=== PATIENT | male | born 1960 | race Caucasian/White ===

== ENCOUNTER 2017-06-25 15:31 | Inpatient (IN) | payer MEDICAID ==
[~2017-06-25] VITALS: Ht 170.2 cm; Wt 90.7 kg
[~2017-06-25 15:31] MED LIST: IOHEXOL-350 100 ML BOTTLE ONE; SODIUM CHLORIDE 0.9% 10ML VIAL ONE
[2017-06-25] MEDS ORDERED: CLOT15CR2 TP (15:50)
[2017-06-25] MEDS ORDERED: FAMO20TA8 PO (15:50)
[2017-06-25] MEDS ORDERED: ATOR10TA69 PO (15:50)
[2017-06-25] MEDS ORDERED: LOSA50TA20 PO (15:50)
[2017-06-25] MEDS ORDERED: GABA-529 PO (15:50)
[2017-06-25] MEDS ORDERED: ASPI-1159 PO (15:50)
[2017-06-25] MEDS ORDERED: INSU100I28 SQ (15:50)
[2017-06-25] MEDS ORDERED: INSLIS SUBCUT (15:50)
[2017-06-25] MEDS ORDERED: METO25TA6 PO (15:50)
[2017-06-25] MEDS ORDERED: SPIR25TA4 PO (15:50)
[2017-06-25] MEDS ORDERED: ASPIRIN 81MG TABLET PO STA (16:32)
[2017-06-25] MEDS ORDERED: LEVOFLOXACIN 750MG PREMIX 150 ML IV ONE (16:45)
[2017-06-25] MEDS ORDERED: SODIUM CHLORIDE 0.9% 1000ML BAG (SEPSIS BOLUS) IV ONE (16:45)
[2017-06-25] MEDS: NITROGLYCERIN 0.4MG TABLET SL SL PRN ×2 (16:47→17:02)
[2017-06-25 17:01] LABS: BASOPHILS % 0.6 % (0.0-2.0); EOSINOPHILS % 1.5 % (0.0-5.0); HEMATOCRIT. 41.4 % (42.0-52.0); HEMOGLOBIN. 13.7 g/dL (14.0-18.0); LYMPHOCYTES % 21.3 % (20.0-50.0); MEAN CORPUSCULAR HEMOGLOBIN 28.4 pg (28.0-32.0); MEAN CORPUSCULAR VOLUME 85.5 fL (80.0-94.0); MEAN PLATELET VOLUME 8.1 fl (7.4-10.4); MONOCYTES % 11.3 % (2.0-8.0); NEUTROPHILS % 65.3 % (40.0-76.0); PLATELET 221 x1000/uL (130-400); RED BLOOD CELL COUNT 4.84 mill/uL (4.7-6.1); RED CELL DISTRIBUTION WIDTH 15.2 % (11.6-14.6)
[2017-06-25 17:13] LABS: D-DIMER 1.37 mg/L FEU (<0.50); PROTHROMBIN TIME 10.2 sec (9.4-11.6)
[2017-06-25 17:21] LABS: CARBON DIOXIDE 25 mEq/L (21-32); CHLORIDE 108 mEq/L (98-107); TROPONIN I < 0.02 ng/mL (0.00-0.04)
[2017-06-25 17:39] LABS: CLARITY URINE CLEAR (CLEAR); COLOR URINE YELLOW (YELLOW); GLUCOSE URINE TRACE (NEGATIVE); KETONES URINE NEGATIVE (NEGATIVE); LEUKOCYTE ESTERASE URINE NEGATIVE (NEGATIVE); NITRITE URINE NEGATIVE (NEGATIVE); OCCULT BLOOD URINE NEGATIVE (NEGATIVE); PH URINE 5.5 (4.5-8.0); PROTEIN URINE TRACE (NEGATIVE); SPECIFIC GRAVITY URINE 1.019 (1.005-1.030); UROBILINOGEN URINE 0.2 E.U./dL (0.2-1.0)
[2017-06-25] MEDS ORDERED: FUROSEMIDE 40MG/4ML VIAL IVP ONE (20:00)
[2017-06-25] MEDS ORDERED: AMMO240L2 TP (20:01)
[2017-06-25] MEDS ORDERED: NEO/5DRO7 OP (20:02)
[2017-06-25] MEDS ORDERED: ONDANSETRON HCL 4MG/2ML VIAL IV PRN (20:15)
[2017-06-25] MEDS ORDERED: CLONIDINE 0.1MG TABLET PO PRN (20:15)
[2017-06-25] MEDS ORDERED: ACETAMINOPHEN 325MG TABLET PO PRN (20:15)
[2017-06-25] MEDS ORDERED: MAGNESIUM/ALUMINUM HYDROXIDE/SIMETHICONE 30ML UDC PO PRN (20:15)
[2017-06-25] MEDS ORDERED: IPRATROPIUM/ALBUTEROL 0.5-3(2.5)MG/3ML NEB INH PRN (20:15)
[2017-06-25] MEDS ORDERED: HYDROCODONE/ACETAMINOPHEN 5/325MG TABLET PO PRN (20:15)
[2017-06-25 22:00] VITALS: BP 109/64
[2017-06-25] MEDS: BLOOD SUGAR DIAGNOSTIC STRIP TEST SCH (22:00)
[2017-06-25] MEDS ORDERED: DEXTROSE 50% WATER 50ML SYRINGE IV PRN (22:00)
[2017-06-25] MEDS ORDERED: CEFTRIAXONE 1 G PREMIX 50 ML IV SCH (22:30)
[2017-06-25] MEDS: AZITHROMYCIN 500 MG TABLET PO SCH (23:00)
[2017-06-25] MEDS: ENOXAPARIN 30MG/0.3ML SYR SUBCUT SCH (23:02)
[2017-06-25] MEDS: INSULIN LISPRO 100 UNITS/ML SUBCUT SCH (23:03)
[2017-06-25] MEDS: GABAPENTIN 400MG CAPSULE PO SCH (23:28)
[2017-06-26] VITALS: BP 115/60
[2017-06-26] MEDS ORDERED: INFLUENZA VIRUS VACCINE 0.5ML SYR IM ONE (01:00)
[2017-06-26 01:36] LABS: CARBON DIOXIDE 25 mEq/L (21-32); CHLORIDE 104 mEq/L (98-107); CREATINE KINASE 261 IU/L (39-308); CREATINE KINASE MB FRACTION 1.6 ng/mL (0.5-3.6); TROPONIN I < 0.02 ng/mL (0.00-0.04)
[2017-06-26 04:00] VITALS: BP 123/78
[2017-06-26] MEDS: GABAPENTIN 400MG CAPSULE PO SCH ×3 (05:37→21:25)
[2017-06-26 06:28] LABS: BASOPHILS % 0.4 % (0.0-2.0); EOSINOPHILS % 0.8 % (0.0-5.0); HEMATOCRIT. 40.2 % (42.0-52.0); HEMOGLOBIN. 13.3 g/dL (14.0-18.0); MEAN CORPUSCULAR HEMOGLOBIN 28.2 pg (28.0-32.0); MEAN CORPUSCULAR VOLUME 85.4 fL (80.0-94.0); MEAN PLATELET VOLUME 8.1 fl (7.4-10.4); MONOCYTES % 11.5 % (2.0-8.0); NEUTROPHILS % 61.3 % (40.0-76.0); PLATELET 197 x1000/uL (130-400)
[2017-06-26] MEDS: BLOOD SUGAR DIAGNOSTIC STRIP TEST SCH ×4 (06:45→21:23)
[2017-06-26 07:35] LABS: CREATINE KINASE 238 IU/L (39-308); CREATINE KINASE MB FRACTION 1.5 ng/mL (0.5-3.6); HDL CHOLESTEROL 19 mg/dL (40-59); LDL CHOLESTEROL 75 mg/dL (5-100); TROPONIN I < 0.02 ng/mL (0.00-0.04)
[2017-06-26 08:00] VITALS: BP 102/57
[2017-06-26] MEDS: INSULIN LISPRO 100 UNITS/ML SUBCUT SCH ×4 (08:10→21:32)
[2017-06-26] MEDS: METOPROLOL TARTRATE 25MG TABLET PO SCH ×2 (08:46→21:00)
[2017-06-26] MEDS: SPIRONOLACTONE 25MG TABLET PO SCH (08:48)
[2017-06-26] MEDS ORDERED: FAMOTIDINE(NEO) 1MG/ML SUSP PO SCH (09:00)
[2017-06-26] MEDS ORDERED: SPIRONOLACTONE 5MG/ML 1ML ORAL SYR(NEO) PO SCH (09:00)
[2017-06-26] MEDS: LOSARTAN POTASSIUM 50 MG TABLET PO SCH (09:13)
[2017-06-26] MEDS: AZITHROMYCIN 500 MG TABLET PO SCH (09:13)
[2017-06-26] MEDS: ASPIRIN 81MG EC TABLET PO SCH (09:13)
[2017-06-26] MEDS: FAMOTIDINE 20MG TABLET PO SCH (09:13)
[2017-06-26] MEDS: ENOXAPARIN 30MG/0.3ML SYR SUBCUT SCH ×2 (09:14→21:27)
[2017-06-26 09:28] LABS: *AMPHETAMINES SCREEN URINE NEGATIVE (NEGATIVE); *BARBITURATES SCREEN URINE NEGATIVE (NEGATIVE); *BENZODIAZEPINES SCREEN URINE NEGATIVE (NEGATIVE); *COCAINE SCREEN URINE NEGATIVE (NEGATIVE); CANNABINOID URINE SCREEN NEGATIVE (NEGATIVE); METHADONE URINE SCREEN NEGATIVE (NEGATIVE); OPIATES URINE SCREEN NEGATIVE (NEGATIVE); PHENCYCLIDINE URINE SCREEN NEGATIVE (NEGATIVE)
[2017-06-26 12:00] VITALS: BP 94/64
[2017-06-26 16:00] VITALS: BP 114/64
[2017-06-26 20:00] VITALS: BP 97/55
[2017-06-26] MEDS ORDERED: ATORVASTATIN CALCIUM 10MG TABLET PO SCH (21:00)
[2017-06-26] MEDS ORDERED: CEFTRIAXONE 1 G PREMIX 50 ML IV SCH (23:00)
[2017-06-27] VITALS: BP 95/50
[2017-06-27 04:00] VITALS: BP 125/71
[2017-06-27] MEDS: GABAPENTIN 400MG CAPSULE PO SCH ×2 (06:00→12:57)
[2017-06-27 06:25] LABS: BASOPHILS % 0.6 % (0.0-2.0); EOSINOPHILS % 2.8 % (0.0-5.0); HEMOGLOBIN. 13.6 g/dL (14.0-18.0); LYMPHOCYTES % 46.1 % (20.0-50.0); MEAN CORPUSCULAR HEMOGLOBIN 28.5 pg (28.0-32.0); MEAN CORPUSCULAR VOLUME 85.7 fL (80.0-94.0); MEAN PLATELET VOLUME 8.3 fl (7.4-10.4); MONOCYTES % 12.2 % (2.0-8.0); NEUTROPHILS % 38.3 % (40.0-76.0); PLATELET 183 x1000/uL (130-400); RED BLOOD CELL COUNT 4.79 mill/uL (4.7-6.1)
[2017-06-27] MEDS: BLOOD SUGAR DIAGNOSTIC STRIP TEST SCH ×2 (06:46→13:10)
[2017-06-27 08:00] VITALS: BP 110/63
[2017-06-27] MEDS: INSULIN LISPRO 100 UNITS/ML SUBCUT SCH ×2 (08:10→14:11)
[2017-06-27 08:23] LABS: CARBON DIOXIDE 24 mEq/L (21-32); CHLORIDE 106 mEq/L (98-107)
[2017-06-27] MEDS: LOSARTAN POTASSIUM 50 MG TABLET PO SCH (08:36)
[2017-06-27] MEDS: FAMOTIDINE 20MG TABLET PO SCH (08:36)
[2017-06-27] MEDS: ASPIRIN 81MG EC TABLET PO SCH (08:36)
[2017-06-27] MEDS: METOPROLOL TARTRATE 25MG TABLET PO SCH (08:37)
[2017-06-27] MEDS: ENOXAPARIN 30MG/0.3ML SYR SUBCUT SCH (08:48)
[2017-06-27] MEDS: AZITHROMYCIN 500 MG TABLET PO SCH (08:55)
[2017-06-27] MEDS ORDERED: REGADENOSON 0.4 MG/5 ML IV ONE (09:24)
[2017-06-27] MEDS: SPIRONOLACTONE 25MG TABLET PO SCH (09:46)
[2017-06-27] MEDS ORDERED: REGADENOSON 0.4 MG/5 ML IV NR (11:15)
[2017-06-27 12:00] VITALS: BP 107/64
[2017-06-27 15:44] VITALS: BP 107/64
[2017-06-27 16:00] VITALS: BP 91/55
== END 2017-06-27 16:10 | disposition home or self-care (01) | DRG 194 ==
LOC: ER 16:50 → 7WST 18:29 → ENRESERV 19:49
PROVIDERS: ADMIT Internal Medicine; ATTEND Internal Medicine
DX: I11.0 Hypertensive heart disease with heart failure (principal); N17.0 Acute kidney failure with tubular necrosis; I50.33 Acute on chronic diastolic (congestive) heart failure; I24.9 Acute ischemic heart disease, unspecified; E11.51 Type 2 diabetes mellitus with diabetic peripheral angiopathy without gangrene; I42.9 Cardiomyopathy, unspecified; I50.9 Heart failure, unspecified; R07.89 Other chest pain; D64.9 Anemia, unspecified; J44.9 Chronic obstructive pulmonary disease, unspecified; E78.00 Pure hypercholesterolemia, unspecified; R79.1 Abnormal coagulation profile; E78.5 Hyperlipidemia, unspecified; F17.210 Nicotine dependence, cigarettes, uncomplicated; I25.10 Atherosclerotic heart disease of native coronary artery without angina pectoris; Z79.82 Long term (current) use of aspirin; Z79.899 Other long term (current) drug therapy; I25.2 Old myocardial infarction; Z79.4 Long term (current) use of insulin; Z95.1 Presence of aortocoronary bypass graft; Z95.828 Presence of other vascular implants and grafts
CPT/HCPCS: 36415; 71010; 71275; 78452; 80048; 80053; 80061; 80305; 81001; 82550; 82553; 82962; 83605; 83735; 83880; 84443; 84484; 85025; 85379; 85610; 85730; 87040; 87070; 87086; 90686; 93005; 93017; 93306; 93970; 96365; 96375; 99285; A4216; A9500; J0696; J1650; J1815; J1940; J1956; J2785; J7030; J7050; Q9967

== ENCOUNTER 2020-10-27 10:50 | Inpatient (IN) | payer MEDICAID, MEDICARE, OTHER ==
[~2020-10-27] VITALS: Ht 170.2 cm; Wt 70.3 kg
[~2020-10-27 10:50] MED LIST changes: +AMMO240L2 TP; +ASPI-1497 PO; +ATOR10TA69 PO; +CLOT15CR27 TP; +FAMO20TA8 PO; +GABA-529 PO; +INSLIS SUBCUT; +INSU100I28 SQ; -IOHEXOL-350 100 ML BOTTLE ONE; +LOSA50TA41 PO; +METO25TA6 PO; +NEO/5DRO7 OP; -SODIUM CHLORIDE 0.9% 10ML VIAL ONE; +SPIR25TA6 PO
[2020-10-27] MEDS ORDERED: SODIUM CHLORIDE 0.9% 1,000 ML IV ONE (11:30)
[2020-10-27 11:38] LABS: BASOPHILS % 0.4 % (0.0-2.0); EOSINOPHILS % 0.6 % (0.0-5.0); HEMOGLOBIN. 14.6 g/dL (14.0-18.0); LYMPHOCYTES % 13.8 % (20.0-50.0); MEAN CORPUSCULAR HEMOGLOBIN 29.2 pg (28.0-32.0); MEAN CORPUSCULAR VOLUME 87.7 fL (80.0-94.0); MEAN PLATELET VOLUME 8.1 fl (7.4-10.4); MONOCYTES % 5.9 % (2.0-8.0); NEUTROPHILS % 79.3 % (40.0-76.0); PLATELET 221 x1000/uL (130-400); RED BLOOD CELL COUNT 5.02 mill/uL (4.7-6.1); RED CELL DISTRIBUTION WIDTH 14.3 % (11.6-14.6)
[2020-10-27 11:44] LABS: CHLORIDE 102 mEq/L (98-107)
[2020-10-27 11:45] LABS: INR 0.9; PROTHROMBIN TIME 9.9 sec (9.6-11.0)
[2020-10-27 12:08] LABS: CLARITY URINE CLEAR (CLEAR); COLOR URINE YELLOW (YELLOW); KETONES URINE NEGATIVE (NEGATIVE); LEUKOCYTE ESTERASE URINE NEGATIVE (NEGATIVE); NITRITE URINE NEGATIVE (NEGATIVE); OCCULT BLOOD URINE NEGATIVE (NEGATIVE); PROTEIN URINE TRACE (NEGATIVE); SPECIFIC GRAVITY URINE 1.034 (1.005-1.030); UROBILINOGEN URINE 0.2 E.U./dL (0.2-1.0)
[2020-10-27] MEDS ORDERED: INSULIN REGULAR (HUMULIN R) UD 100 UNITS/ML SYR SUBCUT NR (12:15)
[2020-10-27] MEDS ORDERED: INSULIN REGULAR (HUMULIN R) 300UNITS/3ML VIAL SUBCUT NR (13:00)
[2020-10-27] MEDS ORDERED: MAGNESIUM/ALUMINUM HYDROXIDE/SIMETHICONE 30ML UDC PO PRN (18:00)
[2020-10-27] MEDS ORDERED: ONDANSETRON HCL 4MG/2ML INJ IV PRN (18:00)
[2020-10-27] MEDS ORDERED: HYDROCODONE/ACETAMINOPHEN 5/325MG TABLET PO PRN (18:00)
[2020-10-27] MEDS ORDERED: DOCUSATE SODIUM 100MG CAPSULE PO PRN (18:00)
[2020-10-27] MEDS ORDERED: ACETAMINOPHEN 325MG TABLET PO PRN (18:00)
[2020-10-27] MEDS ORDERED: DEXTROSE 50% WATER 50ML SYRINGE IV PRN ×2 (18:00)
[2020-10-27] MEDS ORDERED: IPRATROPIUM/ALBUTEROL 0.5-3(2.5)MG/3ML NEB HHN PRN (18:00)
[2020-10-27] MEDS ORDERED: CLONIDINE 0.1MG TABLET PO PRN (18:00)
[2020-10-27 18:31] VITALS: BP 118/59
[2020-10-27] MEDS ORDERED: GABAPENTIN 100MG CAPSULE PO SCH (18:45)
[2020-10-27] MEDS: ENOXAPARIN 40MG/0.4ML SYR SUBCUT SCH (18:59)
[2020-10-27] MEDS ORDERED: SODIUM POLYSTYRENE SULFONATE 15 G/60 ML BOT PO NR (19:00)
[2020-10-27 20:00] VITALS: BP 117/58
[2020-10-27] MEDS: BLOOD SUGAR DIAGNOSTIC STRIP TEST SCH (21:15)
[2020-10-27] MEDS: ATORVASTATIN CALCIUM 10MG TABLET PO SCH (21:18)
[2020-10-27] MEDS: INSULIN LISPRO 100 UNITS/ML SUBCUT SCH (21:22)
[2020-10-27] MEDS ORDERED: INSULIN GLARGINE UD 100 UNITS/ML SYR SUBCUT SCH (22:00)
[2020-10-27] MEDS: INSULIN GLARGINE UD 100 UNITS/ML SYR SUBCUT SCH (23:05)
[2020-10-28] VITALS: BP 91/55
[2020-10-28 04:00] VITALS: BP 105/53
[2020-10-28] MEDS: BLOOD SUGAR DIAGNOSTIC STRIP TEST SCH ×4 (06:44→21:05)
[2020-10-28] MEDS: OMEPRAZOLE 20MG CAPSULE EXTENDED RELEASE PO SCH (06:44)
[2020-10-28 08:00] VITALS: BP 106/60
[2020-10-28 08:01] LABS: BASOPHILS % 0.9 % (0.0-2.0); EOSINOPHILS % 1.7 % (0.0-5.0); HEMATOCRIT. 42.1 % (42.0-52.0); HEMOGLOBIN. 14.1 g/dL (14.0-18.0); MEAN CORPUSCULAR HEMOGLOBIN 29.2 pg (28.0-32.0); MEAN CORPUSCULAR VOLUME 87.4 fL (80.0-94.0); MEAN PLATELET VOLUME 9.1 fl (7.4-10.4); MONOCYTES % 9.1 % (2.0-8.0); NEUTROPHILS % 56.3 % (40.0-76.0); PLATELET 202 x1000/uL (130-400); RED BLOOD CELL COUNT 4.82 mill/uL (4.7-6.1); RED CELL DISTRIBUTION WIDTH 14.2 % (11.6-14.6)
[2020-10-28 08:21] LABS: PHOSPHORUS 2.2 mg/dL (2.5-4.9)
[2020-10-28 08:23] LABS: LDL CHOLESTEROL 114 mg/dL (5-100)
[2020-10-28 08:24] LABS: HDL CHOLESTEROL 27 mg/dL (40-59)
[2020-10-28 08:58] LABS: CHLORIDE 102 mEq/L (98-107)
[2020-10-28] MEDS ORDERED: SPIRONOLACTONE 25MG TABLET PO SCH (09:00)
[2020-10-28] MEDS ORDERED: LOSARTAN POTASSIUM 50 MG TABLET PO SCH (09:00)
[2020-10-28] MEDS ORDERED: METOPROLOL TARTRATE 25MG TABLET PO SCH (09:00)
[2020-10-28] MEDS: GABAPENTIN 400MG CAPSULE PO SCH ×3 (10:51→17:25)
[2020-10-28] MEDS: ASPIRIN 81MG EC TABLET PO SCH (10:52)
[2020-10-28] MEDS: INSULIN LISPRO 100 UNITS/ML SUBCUT SCH ×4 (10:56→21:11)
[2020-10-28] MEDS: METOPROLOL TARTRATE 25MG TABLET PO SCH (17:26)
[2020-10-28 20:00] VITALS: BP 95/56
[2020-10-28] MEDS: ATORVASTATIN CALCIUM 10MG TABLET PO SCH (21:05)
[2020-10-28] MEDS: INSULIN GLARGINE UD 100 UNITS/ML SYR SUBCUT SCH (21:55)
[2020-10-29] VITALS: BP 108/57
[2020-10-29 04:00] VITALS: BP 97/58
[2020-10-29] MEDS: OMEPRAZOLE 20MG CAPSULE EXTENDED RELEASE PO SCH (06:22)
[2020-10-29] MEDS: BLOOD SUGAR DIAGNOSTIC STRIP TEST SCH ×2 (06:22→11:53)
[2020-10-29 07:26] LABS: BASOPHILS % 0.7 % (0.0-2.0); EOSINOPHILS % 1.5 % (0.0-5.0); HEMOGLOBIN. 14.4 g/dL (14.0-18.0); LYMPHOCYTES % 37.7 % (20.0-50.0); MEAN CORPUSCULAR HEMOGLOBIN 29.4 pg (28.0-32.0); MEAN CORPUSCULAR VOLUME 87.8 fL (80.0-94.0); MEAN PLATELET VOLUME 8.8 fl (7.4-10.4); MONOCYTES % 8.8 % (2.0-8.0); NEUTROPHILS % 51.3 % (40.0-76.0); PLATELET 205 x1000/uL (130-400)
[2020-10-29 08:00] VITALS: BP 105/67
[2020-10-29 08:21] LABS: CHLORIDE 105 mEq/L (98-107)
[2020-10-29] MEDS: METOPROLOL TARTRATE 25MG TABLET PO SCH (08:44)
[2020-10-29] MEDS: GABAPENTIN 400MG CAPSULE PO SCH ×2 (08:44→13:00)
[2020-10-29] MEDS: ENOXAPARIN 40MG/0.4ML SYR SUBCUT SCH (08:45)
[2020-10-29] MEDS: ASPIRIN 81MG EC TABLET PO SCH (08:45)
[2020-10-29] MEDS: INSULIN LISPRO 100 UNITS/ML SUBCUT SCH ×2 (08:52→13:07)
[2020-10-29 12:00] VITALS: BP 126/52
== END 2020-10-29 13:55 | disposition home or self-care (01) | DRG 48 ==
LOC: ER 10:50 → 6EST 14:43 → EDBEDREQSVC 14:45 → EDBEDREQ 14:45 → EDBEDREQTM 14:45 → ENRESERV 15:19
PROVIDERS: ADMIT Internal Medicine; ATTEND Internal Medicine
DX: G90.8 Other disorders of autonomic nervous system (principal); I95.9 Hypotension, unspecified; E87.5 Hyperkalemia; E11.65 Type 2 diabetes mellitus with hyperglycemia; E11.40 Type 2 diabetes mellitus with diabetic neuropathy, unspecified; E78.5 Hyperlipidemia, unspecified; E78.00 Pure hypercholesterolemia, unspecified; I10 Essential (primary) hypertension; Z60.2 Problems related to living alone; F17.210 Nicotine dependence, cigarettes, uncomplicated; I25.10 Atherosclerotic heart disease of native coronary artery without angina pectoris; Z89.9 Acquired absence of limb, unspecified; Z79.899 Other long term (current) drug therapy; Z79.82 Long term (current) use of aspirin; Z95.1 Presence of aortocoronary bypass graft; Z95.5 Presence of coronary angioplasty implant and graft; I25.2 Old myocardial infarction; Z79.4 Long term (current) use of insulin; W19.XXXA Unspecified fall, initial encounter
CPT/HCPCS: 36415; 71045; 74176; 76770; 80048; 80053; 80061; 80076; 81003; 82962; 83036; 83735; 84100; 84132; 84443; 84484; 85025; 93005; 93306; 93880; 93970; 97116; 97162; 97166; 97530; 99285; J1650; J1815; J7030

== ENCOUNTER 2022-05-02 07:37 | Inpatient (IN) | payer MEDICAID, MEDICARE ==
[~2022-05-02] VITALS: Ht 175.3 cm; Wt 69.1 kg
[~2022-05-02 07:37] MED LIST changes: -LOSA50TA41 PO; -METO25TA6 PO; -SPIR25TA6 PO
[2022-05-02 11:20] LABS: BASOPHILS % 0.7 % (0.0-2.0); EOSINOPHILS % 1.4 % (0.0-5.0); HEMATOCRIT. 35.9 % (42.0-52.0); HEMOGLOBIN. 11.7 g/dL (14.0-18.0); LYMPHOCYTES % 24.3 % (20.0-50.0); MEAN CORPUSCULAR HEMOGLOBIN 28.4 pg (28.0-32.0); MEAN CORPUSCULAR VOLUME 87.3 fL (80.0-94.0); MONOCYTES % 9.4 % (2.0-8.0); NEUTROPHILS % 64.2 % (40.0-76.0); PLATELET 379 x1000/uL (130-400); RED BLOOD CELL COUNT 4.11 mill/uL (4.7-6.1); RED CELL DISTRIBUTION WIDTH 14.5 % (11.6-14.6)
[2022-05-02 11:28] LABS: CHLORIDE 106 mEq/L (98-107)
[2022-05-02] MEDS ORDERED: VANCOMYCIN 1G PREMIX 200 ML IV ONE (14:45)
[2022-05-02] MEDS ORDERED: PIPERACILLIN/TAZ 3.375G PREMIX 50 ML IV ONE (14:45)
[2022-05-02] MEDS ORDERED: DOCUSATE SODIUM 100MG CAPSULE PO PRN (15:15)
[2022-05-02] MEDS ORDERED: CLONIDINE 0.1MG TABLET PO PRN (15:15)
[2022-05-02] MEDS ORDERED: IPRATROPIUM/ALBUTEROL 0.5-3(2.5)MG/3ML NEB HHN PRN (15:15)
[2022-05-02] MEDS ORDERED: LORAZEPAM 0.5MG TABLET PO PRN (15:15)
[2022-05-02] MEDS ORDERED: ACETAMINOPHEN 325MG TABLET PO PRN ×2 (15:15)
[2022-05-02] MEDS ORDERED: ONDANSETRON HCL 4MG/2ML INJ IV PRN (15:15)
[2022-05-02] MEDS ORDERED: NALOXONE HCL 0.4MG/ML VIAL IV PRN (15:45)
[2022-05-02] MEDS ORDERED: IOHEXOL-350 100 ML BOTTLE ONE (15:59)
[2022-05-02] MEDS: SODIUM CHLORIDE 0.9% 1,000 ML IV SCH (16:19)
[2022-05-02 16:57] LABS: *AMPHETAMINES SCREEN URINE NEGATIVE (NEGATIVE); *BARBITURATES SCREEN URINE NEGATIVE (NEGATIVE); *BENZODIAZEPINES SCREEN URINE NEGATIVE (NEGATIVE); *COCAINE SCREEN URINE NEGATIVE (NEGATIVE); CANNABINOID URINE SCREEN NEGATIVE (NEGATIVE); METHADONE URINE SCREEN NEGATIVE (NEGATIVE); OPIATES URINE SCREEN NEGATIVE (NEGATIVE); PHENCYCLIDINE URINE SCREEN NEGATIVE (NEGATIVE)
[2022-05-02 17:02] LABS: HDL CHOLESTEROL 49 mg/dL (40-59); LDL CHOLESTEROL 89 mg/dL (5-100)
[2022-05-02 19:00] VITALS: BP 120/80
[2022-05-02 20:00] VITALS: BP 120/90
[2022-05-03] VITALS (7 sets, daily range): BP systolic 124–145; BP diastolic 64–99
[2022-05-03] MEDS: GABAPENTIN 400MG CAPSULE PO SCH ×4 (00:28→18:12)
[2022-05-03] MEDS: SODIUM CHLORIDE 0.9% 1,000 ML IV SCH (05:05)
[2022-05-03 06:15] LABS: BASOPHILS % 0.4 % (0.0-2.0); EOSINOPHILS % 1.4 % (0.0-5.0); HEMATOCRIT. 37.2 % (42.0-52.0); HEMOGLOBIN. 12.4 g/dL (14.0-18.0); LYMPHOCYTES % 18.9 % (20.0-50.0); MEAN CORPUSCULAR HEMOGLOBIN 28.8 pg (28.0-32.0); MEAN CORPUSCULAR VOLUME 86.6 fL (80.0-94.0); MEAN PLATELET VOLUME 7.2 fl (7.4-10.4); MONOCYTES % 9.6 % (2.0-8.0); NEUTROPHILS % 69.7 % (40.0-76.0); PLATELET 387 x1000/uL (130-400); RED CELL DISTRIBUTION WIDTH 14.5 % (11.6-14.6)
[2022-05-03 06:40] LABS: CHLORIDE 107 mEq/L (98-107)
[2022-05-03] MEDS: HYDROCODONE/ACETAMINOPHEN 5/325MG TABLET PO PRN (09:44)
[2022-05-03] MEDS ORDERED: IOHEXOL-350 100 ML BOTTLE ONE (13:59)
[2022-05-03] MEDS: MUPIROCIN 2% OINT 15GM TOP SCH (19:45)
[2022-05-04] VITALS (8 sets, daily range): BP systolic 124–160; BP diastolic 60–77
[2022-05-04] MEDS: SODIUM CHLORIDE 0.45% 1,000 ML IV SCH ×2 (08:02→20:30)
[2022-05-04] MEDS: GABAPENTIN 400MG CAPSULE PO SCH ×3 (09:00→17:00)
[2022-05-04] MEDS: MUPIROCIN 2% OINT 15GM TOP SCH (09:00)
[2022-05-04 09:50] LABS: HEMATOCRIT 38.8 % (42.0-52.0); HEMOGLOBIN 12.8 g/dL (14.0-18.0); MEAN CORPUSCULAR HEMOGLOBIN 28.7 pg (28.0-32.0); MEAN CORPUSCULAR VOLUME 86.7 fL (80.0-94.0); PLATELET 367 x1000/uL (130-400); RED BLOOD CELL COUNT 4.48 mill/uL (4.7-6.1); RED CELL DISTRIBUTION WIDTH 14.4 % (11.6-14.6)
[2022-05-04 10:02] LABS: CHLORIDE 109 mEq/L (98-107)
[2022-05-04] MEDS ORDERED: FENTANYL CITRATE/PF 50MCG/ML 2ML VIAL ONE (12:47)
[2022-05-04] MEDS ORDERED: LIDOCAINE HCL 1% 10 MG/ML 10ML VIAL ONE (12:47)
[2022-05-04] MEDS ORDERED: MIDAZOLAM HCL 2 MG/2 ML VIAL ONE ×2 (12:47→14:14)
[2022-05-04] MEDS ORDERED: HEPARIN 1000 UNITS/ML 10ML ONE (12:47)
[2022-05-04] MEDS ORDERED: IODIXANOL 320MG/ML 100 ML BOTTLE IV ONE (12:48)
[2022-05-04] MEDS ORDERED: ASPIRIN/SOD BICARB/CITRIC ACID 324MG TAB EFF ONE (13:55)
[2022-05-04] MEDS ORDERED: LIDOCAINE HCL/PF 2% 20MG/ML 5 ML/VIAL ONE (14:11)
[2022-05-04] MEDS ORDERED: ASPIRIN 81MG TABLET ONE (14:40)
[2022-05-04] MEDS ORDERED: CLOPIDOGREL 75MG TABLET ONE (14:41)
[2022-05-04] MEDS ORDERED: ATROPINE SULFATE 1MG/10ML SYR IV PRN (15:00)
[2022-05-04] MEDS ORDERED: SODIUM CHLORIDE 0.45% 1,000 ML IV ONE (15:00)
[2022-05-04] MEDS ORDERED: CLOPIDOGREL 75MG TABLET PO ONE (15:00)
[2022-05-04] MEDS ORDERED: MORPHINE SULFATE 2 MG/ML CPJ (NOT FOR IM USE) IV PRN (15:00)
[2022-05-04] MEDS ORDERED: ACETAMINOPHEN 325MG TABLET PO PRN (15:00)
[2022-05-04] MEDS ORDERED: METOCLOPRAMIDE HCL 10MG/2ML VIAL ONE (17:44)
[2022-05-04] MEDS: HYDROCODONE/ACETAMINOPHEN 5/325MG TABLET PO PRN (19:52)
[2022-05-04] MEDS: ONDANSETRON HCL 4MG/2ML INJ IV PRN (22:11)
[2022-05-05] VITALS (10 sets, daily range): BP systolic 105–135; BP diastolic 51–68
[2022-05-05] MEDS: ONDANSETRON HCL 4MG/2ML INJ IV PRN (02:10)
[2022-05-05] MEDS: HYDROCODONE/ACETAMINOPHEN 5/325MG TABLET PO PRN ×2 (02:12→11:39)
[2022-05-05] MEDS: SODIUM CHLORIDE 0.45% 1,000 ML IV SCH ×2 (04:23→13:48)
[2022-05-05 06:59] LABS: BASOPHILS % 0.3 % (0.0-2.0); EOSINOPHILS % 0.1 % (0.0-5.0); HEMATOCRIT. 35.3 % (42.0-52.0); HEMOGLOBIN. 11.7 g/dL (14.0-18.0); LYMPHOCYTES % 7.4 % (20.0-50.0); MEAN CORPUSCULAR HEMOGLOBIN 28.7 pg (28.0-32.0); MEAN CORPUSCULAR VOLUME 86.7 fL (80.0-94.0); MEAN PLATELET VOLUME 7.7 fl (7.4-10.4); MONOCYTES % 3.8 % (2.0-8.0); NEUTROPHILS % 88.4 % (40.0-76.0); PLATELET 336 x1000/uL (130-400); RED BLOOD CELL COUNT 4.07 mill/uL (4.7-6.1); RED CELL DISTRIBUTION WIDTH 14.3 % (11.6-14.6)
[2022-05-05 07:20] LABS: CHLORIDE 105 mEq/L (98-107)
[2022-05-05] MEDS ORDERED: ASPIRIN 81MG TABLET PO SCH (09:00)
[2022-05-05] MEDS ORDERED: CLOPIDOGREL 75MG TABLET PO SCH (09:00)
[2022-05-05] MEDS: GABAPENTIN 400MG CAPSULE PO SCH ×2 (09:10→13:47)
[2022-05-05] MEDS: MUPIROCIN 2% OINT 15GM TOP SCH (11:42)
[2022-05-05] MEDS ORDERED: CLOP75TA15 PO (13:10)
[2022-05-05] MEDS ORDERED: HYDR-4001 PO (13:10)
[2022-05-05] MEDS ORDERED: MUPI22OI2 TOP (13:10)
== END 2022-05-05 18:23 | disposition home health service (06) | DRG 182 ==
LOC: ER 07:55 → 6EST 12:56 → ENRESERV 14:22 → 5EST 05-04 19:09
PROVIDERS: ADMIT Internal Medicine; ATTEND Internal Medicine
PROC: 047D3DZ Dilation of Left Common Iliac Artery with Intraluminal Device, Percutaneous Approach (ICD-10-PCS; principal; 2022-05-04)
PROC: B41G1ZZ Fluoroscopy of Left Lower Extremity Arteries using Low Osmolar Contrast (ICD-10-PCS; 2022-05-04)
DX: E11.52 Type 2 diabetes mellitus with diabetic peripheral angiopathy with gangrene (principal); I96 Gangrene, not elsewhere classified; E11.621 Type 2 diabetes mellitus with foot ulcer; L03.116 Cellulitis of left lower limb; L97.529 Non-pressure chronic ulcer of other part of left foot with unspecified severity; F17.200 Nicotine dependence, unspecified, uncomplicated; I25.10 Atherosclerotic heart disease of native coronary artery without angina pectoris; Z20.822 Contact with and (suspected) exposure to COVID-19; E78.00 Pure hypercholesterolemia, unspecified; N32.89 Other specified disorders of bladder; I10 Essential (primary) hypertension; Z79.02 Long term (current) use of antithrombotics/antiplatelets; Z79.82 Long term (current) use of aspirin; Z89.411 Acquired absence of right great toe; I25.2 Old myocardial infarction; Z95.1 Presence of aortocoronary bypass graft; Z95.5 Presence of coronary angioplasty implant and graft; Z98.62 Peripheral vascular angioplasty status; Z79.899 Other long term (current) drug therapy
CPT/HCPCS: 36415; 37221; 71045; 73630; 75635; 75710; 80048; 80053; 80061; 80305; 82962; 83735; 84443; 84484; 85025; 85027; 85347; 85651; 86140; 87426; 93005; 93306; 99285; C1725; C1760; C1769; C1876; C1893; J0461; J1644; J2250; J2270; J2405; J2543; J2765; J3010; J3370; J3490; Q9967

== ENCOUNTER 2023-12-18 19:18 | Inpatient (IN) | payer MEDICAID ==
[~2023-12-18] VITALS: Ht 175.3 cm; Wt 78.5 kg
[~2023-12-18 19:18] MED LIST changes: -AMMO240L2 TP; +AMOX1TAB16 MT; +CLOP75TA15 PO; -CLOT15CR27 TP; +HYDR-4001 PO; +MUPI22OI2 TOP
[2023-12-18 19:44] LABS: CLARITY URINE CLEAR (CLEAR); COLOR URINE YELLOW (YELLOW); GLUCOSE URINE 3+ (NEGATIVE); KETONES URINE NEGATIVE (NEGATIVE); LEUKOCYTE ESTERASE URINE NEGATIVE (NEGATIVE); NITRITE URINE NEGATIVE (NEGATIVE); OCCULT BLOOD URINE NEGATIVE (NEGATIVE); PROTEIN URINE 1+ (NEGATIVE); SPECIFIC GRAVITY URINE 1.024 (1.005-1.030); UROBILINOGEN URINE 0.2 E.U./dL (0.2-1.0)
[2023-12-18 20:02] LABS: BACTERIA URINE TRACE; RBC URINE 0-2 /hpf (0-2); SQUAMOUS EPITHELIAL CELL URINE RARE /lpf (RARE/1+); WBC URINE 0-2 /hpf (0-2)
[2023-12-18 21:41] LABS: EOSINOPHILS % 3.8 % (0.0-5.0); HEMOGLOBIN. 10.2 g/dL (14.0-18.0); MEAN CORPUSCULAR HEMOGLOBIN 29.6 pg (28.0-32.0); MEAN CORPUSCULAR HGB CONC 32.9 g/dL (31.0-37.0); MEAN CORPUSCULAR VOLUME 90.1 fL (80.0-94.0); MEAN PLATELET VOLUME 7.1 fl (7.4-10.4); MONOCYTES % 6.5 % (2.0-8.0); NEUTROPHILS % 62.7 % (40.0-76.0); PLATELET 346 x1000/uL (130-400); RED BLOOD CELL COUNT 3.44 mill/uL (4.7-6.1); RED CELL DISTRIBUTION WIDTH 15.2 % (11.6-14.6); WHITE BLOOD COUNT 12.4 x1000/uL (4.5-11.0)
[2023-12-18 21:55] LABS: ALANINE AMINOTRANSFERASE 10 IU/L (10-49); ALBUMIN 4.2 g/dL (3.2-4.8); ASPARTATE AMINOTRANSFERASE 17 IU/L (<34); BILIRUBIN TOTAL 0.2 mg/dL (0.1-1.0); CALCIUM 9.1 mg/dL (8.7-10.4); CARBON DIOXIDE 25 mEq/L (21-32); CHLORIDE 114 mEq/L (98-107); CREATININE 1.4 mg/dL (0.6-1.3); GLUCOSE 77 mg/dL (70-105); PROTEIN TOTAL 7.3 g/dL (6.0-8.3); SODIUM 143 mEq/L (136-145); UREA NITROGEN BLOOD 23 mg/dL (9-23)
[2023-12-19] MEDS: PIPERACILLIN/TAZO 3.375G/50ML 50 ML IV ONE (02:29)
[2023-12-19 02:56] LABS: BASOPHILS % 0.7 % (0.0-2.0); EOSINOPHILS % 3.8 % (0.0-5.0); HEMATOCRIT. 32.6 % (42.0-52.0); HEMOGLOBIN. 10.5 g/dL (14.0-18.0); LYMPHOCYTES % 29.1 % (20.0-50.0); MEAN CORPUSCULAR HEMOGLOBIN 28.9 pg (28.0-32.0); MEAN CORPUSCULAR HGB CONC 32.1 g/dL (31.0-37.0); MEAN PLATELET VOLUME 7.1 fl (7.4-10.4); MONOCYTES % 7.5 % (2.0-8.0); NEUTROPHILS % 58.9 % (40.0-76.0); PLATELET 341 x1000/uL (130-400); RED BLOOD CELL COUNT 3.62 mill/uL (4.7-6.1); RED CELL DISTRIBUTION WIDTH 15.7 % (11.6-14.6); WHITE BLOOD COUNT 11.4 x1000/uL (4.5-11.0)
[2023-12-19 03:14] LABS: ALANINE AMINOTRANSFERASE 9 IU/L (10-49); ALBUMIN 4.3 g/dL (3.2-4.8); ASPARTATE AMINOTRANSFERASE 17 IU/L (<34); BILIRUBIN TOTAL 0.2 mg/dL (0.1-1.0); CALCIUM 8.8 mg/dL (8.7-10.4); CARBON DIOXIDE 25 mEq/L (21-32); CHLORIDE 111 mEq/L (98-107); CREATININE 1.6 mg/dL (0.6-1.3); GLUCOSE 194 mg/dL (70-105); POTASSIUM 4.7 mEq/L (3.5-5.1); PROTEIN TOTAL 6.8 g/dL (6.0-8.3); SODIUM 140 mEq/L (136-145); UREA NITROGEN BLOOD 21 mg/dL (9-23)
[2023-12-19] MEDS: VANCOMYCIN 1G PREMIX 200 ML IV ONE (03:43)
[2023-12-19] MEDS ORDERED: DEXTROSE 50% WATER 50ML SYRINGE IV PRN (10:00)
[2023-12-19] MEDS ORDERED: ACETAMINOPHEN 325MG TABLET PO PRN (10:00)
[2023-12-19] MEDS ORDERED: ONDANSETRON HCL 4MG/2ML INJ IV PRN (10:00)
[2023-12-19] MEDS ORDERED: BACITRACIN 14GM TUBE TOP ONE (10:44)
[2023-12-19] MEDS ORDERED: LIDOCAINE HCL 1% 10 MG/ML 10ML VIAL ONE (10:44)
[2023-12-19] MEDS ORDERED: POLYMYXIN B SULFATE 500000 UNITS/VIAL ONE (10:44)
[2023-12-19] MEDS ORDERED: BUPIVACAINE HCL/PF 0.5% (5MG/ML) 10ML ONE (10:45)
[2023-12-19] MEDS ORDERED: GENTAMICIN SULF 40MG/ML 2ML VIAL ONE (10:52)
[2023-12-19] MEDS: CEFTRIAXONE 1GM/50ML 50 ML IV SCH (12:38)
[2023-12-19] MEDS: INSULIN LISPRO 100 UNITS/ML SUBCUT SCH (12:39)
[2023-12-19] MEDS: BLOOD SUGAR DIAGNOSTIC STRIP TEST SCH (12:39)
[2023-12-19] MEDS ORDERED: PROPOFOL 200MG/20ML VIAL IV ONE (14:15)
[2023-12-19] MEDS ORDERED: FENTANYL CITRATE/PF 50MCG/ML 2ML VIAL ONE (14:15)
[2023-12-19] MEDS ORDERED: LIDOCAINE HCL 1% 20ML VIAL (Pyxis) INJ ONE (14:15)
[2023-12-19] MEDS ORDERED: VANCOMYCIN HCL 1 GM/VIAL ONE (14:40)
[2023-12-19] MEDS: VANCOMYCIN 1GM/200ML PMX (BAXTER) IV SCH (19:03)
[2023-12-19 20:00] VITALS: BP 126/84; PULSE 73; RESP 16; TEMP 97.4
[2023-12-19 20:26] VITALS: BP 123/70; PULSE 60; RESP 18; TEMP 98.7
[2023-12-19] MEDS: GABAPENTIN 300MG CAPSULE PO SCH (20:58)
[2023-12-19] MEDS ORDERED: VANCOMYCIN 1GM/200ML PMX (BAXTER) IV SCH (21:00)
[2023-12-19] MEDS: GABAPENTIN 400MG CAPSULE PO SCH (21:19)
[2023-12-19] MEDS ORDERED: NALOXONE HCL 0.4MG/ML VIAL IV PRN (22:00)
[2023-12-19] MEDS: HYDROCODONE/ACETAMINOPHEN 10/325MG TABLET PO PRN (22:06)
[2023-12-20] VITALS: BP 102/53; PULSE 70; RESP 18; TEMP 97.5
[2023-12-20 04:00] VITALS: BP 111/54; PULSE 66; RESP 18; TEMP 97.5
[2023-12-20 08:00] VITALS: BP 100/51; PULSE 65; RESP 18; TEMP 97.5
[2023-12-20 12:00] VITALS: BP 108/52; PULSE 74; RESP 18; TEMP 98
[2023-12-20 16:00] VITALS: BP 111/47; PULSE 77; RESP 18; TEMP 97.3
[2023-12-20 20:00] VITALS: BP 123/59; PULSE 74; RESP 16; TEMP 97.2
[2023-12-21 04:00] VITALS: BP 133/59; PULSE 99; RESP 16; TEMP 96.9
[2023-12-21 08:00] VITALS: BP 96/52; PULSE 74; RESP 17; TEMP 96.1
[2023-12-21 08:08] LABS: CARBON DIOXIDE 22 mEq/L (21-32); CHLORIDE 110 mEq/L (98-107); CREATININE 1.2 mg/dL (0.6-1.3); GLUCOSE 142 mg/dL (70-105); SODIUM 138 mEq/L (136-145); UREA NITROGEN BLOOD 24 mg/dL (9-23)
[2023-12-21] MEDS: VANCOMYCIN 750MG/150ML IV SCH (10:00)
[2023-12-21] MEDS ORDERED: SULF1TAB48 MT (11:19)
[2023-12-21 12:00] VITALS: BP 117/53; PULSE 73; RESP 19; TEMP 95.7
[2023-12-21 12:37] VITALS: BP 113/60; PULSE 73; TEMP 97.7; O2SAT 98
== END 2023-12-21 14:34 | disposition home or self-care (01) | DRG 314 ==
LOC: ER 19:18 → 6EST 12-19 03:23
PROVIDERS: ADMIT Internal Medicine; ATTEND Internal Medicine
PROC: 0QBN0ZZ Excision of Right Metatarsal, Open Approach (ICD-10-PCS; principal; 2023-12-19)
DX: E11.69 Type 2 diabetes mellitus with other specified complication (principal); M86.8X7 Other osteomyelitis, ankle and foot; N17.9 Acute kidney failure, unspecified; E11.22 Type 2 diabetes mellitus with diabetic chronic kidney disease; E11.51 Type 2 diabetes mellitus with diabetic peripheral angiopathy without gangrene; E11.621 Type 2 diabetes mellitus with foot ulcer; L03.115 Cellulitis of right lower limb; D64.9 Anemia, unspecified; N18.9 Chronic kidney disease, unspecified; I25.2 Old myocardial infarction; E78.00 Pure hypercholesterolemia, unspecified; F17.200 Nicotine dependence, unspecified, uncomplicated; I25.10 Atherosclerotic heart disease of native coronary artery without angina pectoris; Z79.4 Long term (current) use of insulin; Z89.411 Acquired absence of right great toe; Z95.1 Presence of aortocoronary bypass graft
CPT/HCPCS: 36415; 71045; 73630; 73721; 80048; 80053; 80202; 81003; 82962; 85025; 86850; 86900; 87070; 87075; 88311; 93005; 99285; J0696; J1580; J1815; J2543; J2704; J3010; J3370; J3490